=== PATIENT | female | born 1935 | race Caucasian/White ===

== ENCOUNTER → 2016-08-22 | Outpatient (CLI) | payer OTHER, MEDICARE ==
[2016-08-22 17:25] LABS: BUN/CREATININE RATIO 31.66 (6-20); CALCIUM 10.1 mg/dL (8.7-10.7); CREATININE 1.2 mg/dL (0.50-1.20); POTASSIUM 4.6 meq/L (3.8-5.2)
== END ==
LOC: MOB LAB 14:47
PROVIDERS: ATTEND Internal Medicine
DX: M81.0 Age-related osteoporosis without current pathological fracture (principal); F17.210 Nicotine dependence, cigarettes, uncomplicated
CPT/HCPCS: 36415; 80048

== ENCOUNTER → 2016-09-06 | Outpatient (CLI) | payer OTHER, MEDICARE | LOC: MMPC 11:11 | PROVIDERS: ATTEND Internal Medicine | DX: M81.0 Age-related osteoporosis without current pathological fracture (principal) | CPT/HCPCS: G0463; J0897 ==

== ENCOUNTER 2017-09-11 14:41 | Inpatient (IN) ==
--- NOTE | 2017-09-11 14:50 | PDOC ---
Upper Respiratory HPI - General Chief Complaint: Cough / URI Stated Complaint: COUGH Date Seen by Provider: 09/11/17 Time Seen by Provider: 14:50 Source: POSITIVE: Patient Nurse's Notes Reviewed & Considered: Yes - History of Present Illness Initial Comments: Patient is a 82 y/o female who presents to the ER with cough and SOB. She has been coughing for one week. Occasionally has been productive. Denies fevers or chills. Has a history of peripheral vascular disease and is planning on undergoing stenting. Cough has been worse over the last few days. She does feel shortness of breath. There is only chest discomfort when she coughs. Denies any pain or swelling in the lower extremities. Patient denies any nausea or vomiting. patient denies abdominal pain. - Patient Home Medications Home Medications: Home Medications Aspirin [Aspir 81] 1 tab ORAL QD #0 tab 07/30/12 Calcium Carbonate/Vitamin D3 [Calcium 500 + Vit D 200 Caplet] 1 ea PO BID Denosumab [Prolia] 1 ml SUBCUT every 6 months #0 ml 07/25/15 bupropion HCl XL 300 mg 24 hr tablet, extended release 300 mg PO QDAY #90 tab linaclotide 145 mcg capsule 145 mcg PO QDAY #90 cap 08/21/17 metoprolol tartrate 25 mg tablet 25 mg PO BID #180 tab 08/21/17 oxybutynin chloride ER 5 mg tablet,extended release 24 hr 5 mg PO QDAY #90 tab 08/21/17 pantoprazole 40 mg tablet,delayed release 40 mg PO QDAY #90 tab 08/21/17 rosuvastatin 40 mg tablet 40 mg PO QHS #90 tab 08/21/17 spironolactone 25 mg tablet 25 mg PO QDAY #90 tab 08/21/17 Ascorbic Acid [C-1000] 1,000 mg PO DAILY 09/11/17 - Patient Allergies Allergies/Adverse Reactions: Allergies 3 Allergy/AdvReac Type Severity Reaction Status Date / Time No Known Allergies Allergy Verified 09/11/17 17:40 Past Medical History - heen HEENT History: Denies History Cardiovascular History: CHF, Previous RI, PVD, Hyperlipidemia Additional Cardiovasular History: CARDIOMYOPATHY/ CAROTID ATHEROSCLEROSIS/ Respiratory History: Denies History, Snoring Gastrointestinal History: GERD, GI Bleed Genitourinary History: Denies History Endocrine History: Denies History Musculoskeletal History: Arthritis, Osteoporosis Prosthesis or Implant: Yes (STENTS X5 CORONARY) Neurological History: TIA Blood Disorders: Anemia Psychiatric History: Depression History of Sexually Transmitted Diseases: No Cancer History: Breast History of MDRO: No History of Other Communicable Diseases: No Alcohol Use: Occasionally In the Past 12 Months, Have Used or Abuse Any Substance: None Previous Surgical History: Yes Type / Date of Surgery: COLONOSCOPY/ CORONARY STENT X5/ EGD/ HYST/ RIGHT MASTECTOMY/HEMORROID SURGERY Anesthesia Reactions: No Malignant Hyperthermia: No Past Medical History Reviewed: Reviewed - No Changes ROS - Limitations ROS Limitations: No Limitations Constitution: REPORTS: Denies Symptoms Cardiovascular: REPORTS: Chest Pain Respiratory: REPORTS: Cough Productive Neurological: REPORTS: Denies Neuro Symptoms Gastrointestinal: REPORTS: Denies GI Symptoms Endocrine: REPORTS: Denies Symptoms Musculoskeletal: REPORTS: Denies MS Symptoms Genitourinary: REPORTS: Denies Symptoms Eyes: REPORTS: Denies Symptoms ENT: REPORTS: Denies Symptoms Skin: REPORTS: Denies Skin Symptoms Lympathic: REPORTS: Denies Lympathic Symptoms Psychiatric: POSITIVE: Denies Psych Symptoms Upper Respiratory/Fever Exam - General Appearance General Appearance: REPORTS: Alert, Cooperative, No Acute Distress - HEENT HEENT: POSITIVE: Head Inspection Nml, Nose Inspection Nml, Oral/Dental Inspect. Nml - Neck Neck: REPORTS: Normal Inspection, Supple - Respiratory Respiratory: REPORTS: No Respiratory Distress, Other (diminished bilaterally. R> L.) - Abdomen Abdomen: Soft: (All Quadrants) Additional Abdominal Details: Mild distension of the abdomen. No rebound or guarding. - Cardiovascular Cardiovascular: REPORTS: Regular Rate and Rhythm, No Murmur, No Gallop - Skin Skin: REPORTS: Intact - Extremities Additional Extremities Details: trace edema in the LE bilaterally. - Neurological / Psychological Neurological: POSITIVE: Affect Apporpriate, Oriented X3 Upper Resp/Fever Progress - Results Reviewed by me Xrays/CTs/US Reviewed by me: Yes Lab Results Reviewed by Me: Yes CBC and BMP: 09/11/17 15:19 18 15:19 EKG Interpreted/Reviewed By Me:: Yes (sinus rhythm. No acute ST changes.) - Patient's Progress MDM / ED Course: Mrs. Mc is an 82-year-old female who presents to the emergency department with coughing and shortness of breath. Her vital signs are notable for hypoxia and examination demonstrates diminished lung sounds worse in the left compared to the right. Differential diagnosis includes but is not limited to pneumonia, pneumothorax, congestive heart failure. Patient's laboratory studies demonstrate no elevation in her white blood cell count to suggest infection and chest x-ray demonstrates cardiomegaly with vascular congestion and likely left pleural effusion. He shouldn't BNP is also elevated from her priors it was approximately 2 weeks ago. EKG and troponins are negative making acute ACS less likely. And there is no evidence of georgina pneumonia and pneumothorax on her chest x-ray. Chemistry panel demonstrates increase in BUN/creatinine from baseline as well. With x-ray findings an elevation in BNP a suspected CHF may be the etiology of her hypoxia at this time. I did attempt a trial of albuterol without improvement in her oxygenation or her breath sounds. Given patient's hypoxia she'll be admitted for further treatment she was treated with 40 mg of Lasix here and admitted to the hospital. Patient Care Time - Estimated PCT Patient Care Time (In Minutes): 45 Vital Signs - Recent Vital Signs Vital Signs: Vital Signs (Last 8 hours) Temp Pulse Pulse Resp BP Pulse Ox 09/11/17 16:21 75 09/11/17 15:18 76 18 92 09/11/17 15:17 79 18 92 09/11/17 14:41 97.8 F 69 24 113/59 71 - VS Reviewed Vital Signs Reviewed: Yes Discharge Clinical Impression: Acute exacerbation of CHF (congestive heart failure) Qualifiers: Congestive heart failure type: unspecified congestive heart failure type Qualified Code(s): I50.9 - Heart failure, unspecified Discharge Disposition: Admit to Inpatient Condition: Good Date Decision to Admit to Inpatient: 09/11/17 Time Decision to Admit to Inpatient: 16:56
[2017-09-11] MEDS ORDERED: IPRATROPIUM/ALBUTEROL SULFATE 3 ML NEB NEB ONE ×2 (14:51)
[2017-09-11] MEDS: NORMAL SALINE 10 ML SYRINGE FLUSH IVP PRN ×2 (15:15→17:24)
[2017-09-11 15:16] LABS: VENOUS PH 7.39 (7.32-7.42)
[2017-09-11 15:21] LABS: BASOPHILS # (AUTO) 0.02 10*3/UL; BASOPHILS % (AUTO) 0.2 % (0-1); EOSINOPHILS # (AUTO) 0.41 10*3/UL; Hematocrit [HCT] 41.1 % (37.0-47.0); Hemoglobin [HGB] 13.4 g/dL (12.0-16.0); LYMPHOCYTES # (AUTO) 0.82 10*3/uL; MEAN CORPUSCULAR HEMOGLOBIN 29.8 PG (27-31); MEAN CORPUSCULAR HGB CONC 32.6 g/dL (33-37); MEAN CORPUSCULAR VOLUME 91.5 FL (81-99); MEAN PLATELET VOLUME 10.8 FL (7.4-12.2); MONOCYTES % (AUTO) 7.4 % (5-15); NEUTROPHILS # (AUTO) 6.22 10*3/UL; NEUTROPHILS % (AUTO) 76.7 % (50-80); RED BLOOD COUNT 4.49 10^6/uL (4.20-5.40)
[2017-09-11 15:22] LABS: PLATELET MORPHOLOGY COMMENT NORMAL MORPHOLOGY (NORM); RBC MORPHOLOGY COMMENT NORMAL MORPHOLOGY (NORM); WBC MORPHOLOGY COMMENT NORMAL MORPHOLOGY (NORM)
[2017-09-11 15:33] LABS: BLOOD UREA NITROGEN 36 mg/dL (7-22)
--- NOTE | 2017-09-11 15:49 | DI ---
AP CHEST X-RAY, 09/11/2017 2:51 PM : Clinical History: Cough. Hypoxia. Previous Exam: 08/21/2017. The patient took a somewhat shallow inspiratory effort compared to the previous exam. There is no acu te soft tissue or bony abnormality. The patient is status post right mastectomy. There is cardiomegal y. CHF is difficult to quantify because of the shallow degree of inspiration as compared to the previ ous exam but CHF is still suspected. There is a coronary artery stent in the LAD. There is atelectasi s at the right base. Mediastinal structures are normal. There are no pulmonary nodules. Readin. Cardiomegaly with probable CHF. 2. Coronary artery disease. Status post right mastectomy.
--- NOTE | 2017-09-11 16:20 | EKG ---
[address] [place] [address] [place] [address] Measurements Intervals Queen Rate: 75 P: 65 DC: 199 QRS: 15 QRSD: 106 T: 111 QT: 370 QTc: 399 Interpretive Statements SINUS RHYTHM LEFT ATRIAL ENLARGEMENT INFERIOR MYOCARDIAL INFARCTION OF INDETERMINATE AGE WITH POSTERIOR EXTENSION MODERATE T-WAVE ABNORMALITY, CONSIDER LATERAL ISCHEMIA No previous ECG available for comparison Electronically Signed On 09-12-17 10:07:24 [facility] by Simon Jarvis [email or web address]
[2017-09-11] MEDS ORDERED: FUROSEMIDE 10 MG/1 ML - 4 ML IVP ONE (16:54)
[2017-09-11] MEDS ORDERED: LIDOCAINE W/ SODIUM BICARB 0.5 ML SYR SUBD PRN (18:43)
--- NOTE | 2017-09-11 18:56 | PDOC ---
HPI - History of Present Illness Date of Service: 09/11/17 Time of Service: 19:00 Chief Complaint: Cough of few days duration History of Present Illness: This is a 82 years old female with medical history significant for history of coronary artery disease with previous silent TX and multiple stents before, hypertension, history of breast cancer and uterine cancer who presented to the hospital with history of cough that's been going on for few days. She is not sure about shortness of breath but on repeated questioning she said yes she has some shortness of breath, she said her mobility is limited mainly by her pain in her legs when she walks she will walk half a block and stop because of pain in her legs. She denied orthopnea or PND. Denied chest pain. She did say that she is saw a vascular surgeon yesterday and they sent her to the overhead foreman for clearance as she needed surgery was discovered that she had hypoxia yesterday and they ordered oxygen but was not delivered yet. Because her oxygen remained low her daughter brought her to the ER. In the ER she was found to be hypoxic and she was put on oxygen her x-ray suggested CHF was given Lasix and was admitted. Past Medical History Medical History: 1. Coronary artery disease with previous silent TX according to her, had multiple stents. 2. GERD. 3. History of breast cancer status post right mastectomy. 4. History of uterine cancer. 5. Peripheral vascular disease. 6. Osteoporosis. 7. Depression Surgical History: 1. History of hysterectomy. 2. History of mastectomy Family History: Reviewed an Not Pertinent Past Social History: She smokes about 10-18 cigarettes a day, drinks nearly every day. No drugs. Lives in [place]. Tobacco Use: Current Every Day Smoker In the Past 12 Months, Have Used or Abuse Any of the Following Substance: None Alcohol Use: Other (She drinks nearly every day) Medication / Allergies Home Medications: Home Medications 3 Medication Instructions Recorded Confirmed Type Aspirin [Aspir 81] 1 tab ORAL QD #0 tab 07/30/12 09/11/17 History Calcium Carbonate/Vitamin D3 1 ea PO BID 07/30/12 09/11/17 History [Calcium 500 + Vit D 200 Caplet] Denosumab [Prolia] 1 ml SUBCUT every 6 months #0 ml 07/25/15 09/11/17 History bupropion HCl XL 300 mg 24 hr 300 mg PO QDAY #90 tab 08/21/17 09/11/17 Rx tablet, extended release linaclotide 145 mcg capsule 145 mcg PO QDAY #90 cap 08/21/17 09/11/17 Rx metoprolol tartrate 25 mg tablet 25 mg PO BID #180 tab 08/21/17 09/11/17 Rx oxybutynin chloride ER 5 mg 5 mg PO QDAY #90 tab 08/21/17 09/11/17 Rx tablet,extended release 24 hr pantoprazole 40 mg tablet,delayed 40 mg PO QDAY #90 tab 08/21/17 09/11/17 Rx release rosuvastatin 40 mg tablet 40 mg PO QHS #90 tab 08/21/17 09/11/17 Rx spironolactone 25 mg tablet 25 mg PO QDAY #90 tab 08/21/17 09/11/17 Rx Ascorbic Acid [C-1000] 1,000 mg PO DAILY 09/11/17 09/11/17 History Allergies/Adverse Reactions: Allergies 3 Allergy/AdvReac Type Severity Reaction Status Date / Time No Known Allergies Allergy Verified 09/12/17 06:24 Review of Systems - Review of Systems All Systems: Reviewed & No Additional Complaints Except as Stated Exam - Vitals Vital Signs: Vital Signs Temperature 98.3 F Temperature Source Oral Pulse Rate [Pulse Oximeter] 70 Pulse Rate 69 Respiratory Rate 22 Blood Pressure [Left Arm] 99/36 Blood Pressure 95/36 Pulse Ox 90 Oxygen Flow Rate 4 Oxygen Delivery Method Nasal Cannula Height 5 ft 3 in Weight 141 lb 8 oz - General General Appearance: No Acute Distress, Cooperative, Thin - Head Head Exam: Normal Inspection, Atraumatic - Eye Eye Exam: POSITIVE: Normal Appearance - ENT ENT Exam: POSITIVE: Normal Exam - Neck Neck Exam: Normal Inspection - Respiratory Additional Respiratory Exam Details: Decreased air entry, harsh breath sounds but I don't hear a lot of crackles at the bases. - Cardiovascular Cardiovascular Exam: POSITIVE: RRR - GI/Abdominal GI/Abdominal Exam: POSITIVE: Normal Bowel Sounds, Non Tender, Non Distended, Soft, No Organomegaly - Rectal Rectal Exam: POSITIVE: Deferred - External Exam: POSITIVE: Deferred Exam: POSITIVE: Deferred - Extremities Extremities Exam: POSITIVE: Normal Inspection - Back Back Exam: POSITIVE: Normal Inspection - Neurological Neurological Exam: POSITIVE: Alert, Oriented x 3, CN II-XII Intact, Speech Intact / Clear, Moves All Extremities Equally - Psychiatric Psychiatric Exam: POSITIVE: Normal Affect - Integumentary Integumentary Exam: POSITIVE: Normal Color Results - Labs CBC and BMP: 09/11/17 15:19 09/12/17 04:46 - EKG Data -: EKG Interpreted by Me Rate: Normal EKG Shows Normal: Sinus Rhythm - EKG Data EKG Interpretation: Other (EKG showed sinus rhythm with old inferior and T inversion in the lateral leads) - Imaging Status: Report Reviewed by Me (chest x ray showed cardiomegaly and CHF) Assessment and Plan - Patient Problems (1) Shortness of breath Current Visit: Yes Status: Acute Comment: I think probably a combination of CHF and COPD. She did receive Lasix will continue with Lasix. Will order an echocardiogram. I also will order a CT of her chest also. Will put on some breathing treatment. Code(s): R06.02 - Shortness of breath (2) Gastroesophageal reflux disease Current Visit: No Status: Chronic Comment: Same med (3) History of coronary artery disease Current Visit: Yes Status: Acute Comment: Continue aspirin and beta adelso. Code(s): Z86.79 - Personal history of other diseases of the circulatory system
[2017-09-11] MEDS: FLUTICASONE/SALMETEROL 250/50 UD INHALER INH SCH (19:30)
[2017-09-11] MEDS: Metoprolol TARTRATE Tab 25 MG TAB PO SCH (20:19)
[2017-09-11] MEDS: Rosuvastatin Tab 20 MG TAB PO SCH (20:19)
[2017-09-12 05:32] LABS: BLOOD UREA NITROGEN 38 mg/dL (7-22); BUN/CREATININE RATIO 23.75 (6-20)
[2017-09-12] MEDS: FLUTICASONE/SALMETEROL 250/50 UD INHALER INH SCH ×2 (06:17→18:59)
[2017-09-12] MEDS: TIOTROPIUM BROMIDE 18 MCG CAPSULE INH SCH (06:20)
[2017-09-12] MEDS ORDERED: FUROSEMIDE 10 MG/1 ML - 2 ML VIAL IVP SCH (07:00)
[2017-09-12] MEDS: PANTOPRAZOLE 40 MG TABLET PO SCH (07:12)
[2017-09-12] MEDS: FUROSEMIDE 10 MG/1 ML - 2 ML VIAL IVP SCH (07:13)
[2017-09-12] MEDS: NORMAL SALINE 10 ML SYRINGE FLUSH IVP PRN ×3 (07:13→13:14)
[2017-09-12] MEDS: buPROPion XL Tab 150 MG TAB PO SCH (09:12)
[2017-09-12] MEDS: Spironolactone Tab 25 MG TAB PO SCH (09:12)
[2017-09-12] MEDS: ASPIRIN EC 81 MG TABLET PO SCH (09:12)
[2017-09-12] MEDS: Metoprolol TARTRATE Tab 25 MG TAB PO SCH ×2 (09:13→21:22)
[2017-09-12] MEDS: Oxybutynin ER Tab 5 MG TAB PO SCH (09:13)
--- NOTE | 2017-09-12 10:36 | DI ---
CT CHEST SCAN WITHOUT IV CONTRAST, 09/12/2017 8:00 AM : Clinical History: Cough. Shortness of breath. Previous Exam: None at this facility. Comparison is made with chest x-ray exams from 08/21/2017, and . Scans are performed from the base of the neck to the lower lung bases without IV contrast. Sagittal a nd coronal images using non MIPS and MIPS technique are generated. The patient is status post right mastectomy and right axillary node dissection. The base of the neck and thoracic inlet are normal. There are no abnormal axillary, supraclavicular, mediastinal, or hilar nodes. There is a calcified myocardial infarction involving the laterobasal in the distribution of t he lateral circumflex territory. There are densities in the coronary arteries most likely representin g stents in the left circumflex artery, the LAD, and the right coronary artery. There is an infiltrat e consistent with pneumonia involving the posterior segment of the right upper lobe. In retrospect, t his density was present on the chest x-ray from 09/11/2017. There is bronchiectasis involving both low er lobes. Juan B lines are present indicating chronic interstitial pulmonary fibrosis. Small bullae are scattered throughout both lungs indicating bullous emphysema. There is a 4 mm noncalcified nodul e toward the lateral aspect of the anterior segment of the right upper lobe. A 5 mm noncalcified nodu le along with a 3 mm noncalcified nodule is present just above the left costophrenic angle. A followu p CT scan of the chest without IV contrast is recommended in 12 months to monitor these lesions. The adrenal glands, and the visualized portions of the liver, pancreas, and spleen are normal. No blastic or lytic bony lesions are identified. READIN. Right upper lobe pneumonia involving primarily the posterior segment. 2. 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 There is bronchiectasis involving both lower lobes. 3. Coronary artery disease with evidence of a calcified infarct in the lateral basal segment corresp onding to the lateral circumflex artery distribution. Multiple stents are visualized in the LAD, righ t coronary artery, and left circumflex artery. 4. There are 3 noncalcified nodules measuring less than 6 mm in diameter. One is located in the ante rior segment of the right upper lobe and the other 2 lesions are located in the left costophrenic ang le. A followup noncontrast CT scan of the chest is recommended in 12 months.
--- NOTE | 2017-09-12 11:22 | PDOC(PROG) ---
Date and Time of Service: 09/12/2017 11:20 AM Interval History: Subjective Continue to have the cough, not much phlegm is coming up. The cough maybe a little bit better. Breathing is okay. Objective : Data - Labs CBC and BMP: 09/11/17 15:19 09/12/17 04:46 Objective : Exam - General General Appearance: No Acute Distress, Cooperative - Head Head Exam: Normal Inspection - Eye Eye Exam: Normal Appearance - ENT ENT Exam: Normal Exam - Neck Neck Exam: Normal Inspection - Respiratory Additional Respiratory Exam Details: Decreased air entry. Few crackles at the bases - Cardiovascular Cardiovascular Exam: RRR - GI/Abdominal GI/Abdominal Exam: Normal Bowel Sounds, Non Tender, Non Distended, Soft, No Organomegaly - Rectal Rectal Exam: Deferred - External Exam: Deferred Exam: Deferred - Extremities Extremities Exam: Normal Inspection - Back Back Exam: Normal Inspection - Neurological Neurological Exam: Alert, Oriented x 3, CN II-XII Intact, No Facial Droop, Speech Intact / Clear, Moves All Extremities Equally - Psychiatric Psychiatric Exam: Normal Affect Assessment and Plan - Patient Problems (1) Pneumonia Current Visit: Yes Status: Acute Comment: The x-ray from yesterday did not report pneumonia however we did a CT today and showed pneumonia in the right upper lobe, blood culture was already taken so we'll start her on antibiotics. So the shortness of breath and the cough may be due to pneumonia in addition to COPD and CHF. Code(s): J18.9 - Pneumonia, unspecified organism (2) Shortness of breath Current Visit: Yes Status: Acute Comment: Probably multifactorial secondary to pneumonia, COPD and CHF. I think we'll continue with the Lasix. Continue bronchodilator and oxygen. She'll have an echo today. Code(s): R06.02 - Shortness of breath (3) Gastroesophageal reflux disease Current Visit: No Status: Chronic Comment: Same med (4) History of coronary artery disease Current Visit: Yes Status: Acute Comment: Continue aspirin and beta adelso. Code(s): Z86.79 - Personal history of other diseases of the circulatory system (5) Chronic renal failure Current Visit: Yes Status: Acute Comment: Her Creatinine before was between 1.3-1.6. But still at baseline will repeat tomorrow. Code(s): N18.9 - Chronic kidney disease, unspecified (6) DVT prophylaxis Current Visit: Yes Status: Acute Comment: Will put her on Lovenox
[2017-09-12] MEDS: cefTRIAXone Inj 1 GM in Sodium Chloride 0.9% 100 ML IV SCH (11:41)
[2017-09-12] MEDS: GUAIFENESIN/DM 5 ML UD CUP PO PRN ×2 (12:48→17:25)
[2017-09-12] MEDS: ALBUTEROL SULFATE 8.5 GM HFA INHALER INH SCH ×2 (14:00→19:00)
[2017-09-12] MEDS: Rosuvastatin Tab 20 MG TAB PO SCH (21:22)
[2017-09-13] MEDS: ALBUTEROL SULFATE 8.5 GM HFA INHALER INH SCH ×4 (01:10→20:10)
[2017-09-13 05:29] LABS: BLOOD UREA NITROGEN 34 mg/dL (7-22); BUN/CREATININE RATIO 26.15 (6-20)
[2017-09-13] MEDS: FLUTICASONE/SALMETEROL 250/50 UD INHALER INH SCH ×2 (06:33→20:11)
[2017-09-13] MEDS: TIOTROPIUM BROMIDE 18 MCG CAPSULE INH SCH (06:35)
[2017-09-13] MEDS: PANTOPRAZOLE 40 MG TABLET PO SCH (07:07)
[2017-09-13] MEDS: FUROSEMIDE 10 MG/1 ML - 2 ML VIAL IVP SCH (07:07)
[2017-09-13] MEDS: NORMAL SALINE 10 ML SYRINGE FLUSH IVP PRN (07:08)
[2017-09-13] MEDS: Spironolactone Tab 25 MG TAB PO SCH (08:26)
[2017-09-13] MEDS: buPROPion XL Tab 150 MG TAB PO SCH (08:26)
[2017-09-13] MEDS: Metoprolol TARTRATE Tab 25 MG TAB PO SCH ×2 (08:26→20:17)
[2017-09-13] MEDS: Oxybutynin ER Tab 5 MG TAB PO SCH (08:26)
[2017-09-13] MEDS: ENOXAPARIN SODIUM 30 MG/0.3 ML SYRINGE SUBCUT SCH (08:26)
[2017-09-13] MEDS: ASPIRIN EC 81 MG TABLET PO SCH (08:27)
--- NOTE | 2017-09-13 08:45 | PDOC(PROG) ---
Date and Time of Service: 09/13/2017 8:41 AM Interval History: Subjective Patient continued to have the cough. She is denying shortness of breath. Denying chest pain. She said that she feels she made improvement compared to when she came in. No swelling in her legs. Objective : Data - Labs CBC and BMP: 09/11/17 15:19 09/13/17 04:23 Objective : Exam - General General Appearance: No Acute Distress, Cooperative, Thin - Head Head Exam: Normal Inspection, Atraumatic - Eye Eye Exam: Normal Appearance - ENT ENT Exam: Normal Exam - Neck Neck Exam: Normal Inspection - Respiratory Additional Respiratory Exam Details: Decreased air entry otherwise clear - GI/Abdominal GI/Abdominal Exam: Normal Bowel Sounds, Non Tender, Non Distended, Soft, No Organomegaly - Rectal Rectal Exam: Deferred - External Exam: Deferred - Extremities Extremities Exam: Normal Inspection - Back Back Exam: Normal Inspection - Neurological Neurological Exam: Alert, Oriented x 3, CN II-XII Intact, No Facial Droop, Speech Intact / Clear, Moves All Extremities Equally - Psychiatric Psychiatric Exam: Normal Affect - Integumentary Integumentary Exam: Normal Color Assessment and Plan - Patient Problems (1) Pneumonia Current Visit: Yes Status: Acute Comment: Continue current antibiotics. Code(s): J18.9 - Pneumonia, unspecified organism (2) Shortness of breath Current Visit: Yes Status: Acute Comment: Multifactorial, part of it is secondary to pneumonia part of it secondary to COPD and CHF. Continue bronchodilator, continue Lasix. Code(s): R06.02 - Shortness of breath (3) Gastroesophageal reflux disease Current Visit: No Status: Chronic Comment: Same med (4) History of coronary artery disease Current Visit: Yes Status: Acute Comment: Continue metoprolol and aspirin. Code(s): Z86.79 - Personal history of other diseases of the circulatory system (5) Chronic renal failure Current Visit: Yes Status: Acute Comment: Creatinine is actually better today than yesterday. Code(s): N18.9 - Chronic kidney disease, unspecified (6) DVT prophylaxis Current Visit: Yes Status: Acute Comment: She is on Lovenox (7) CHF (congestive heart failure) Current Visit: Yes Status: Acute Comment: I don't have the official echo yet, BNP seem to be improved. Continue Lasix. According to the bioprocessing manufacturing technician ejection fraction is between 45-50%. Will wait for the official report. Consider adding LAUREN inhibitor to her medications. Code(s): I50.9 - Heart failure, unspecified
[2017-09-13] MEDS: cefTRIAXone Inj 1 GM in Sodium Chloride 0.9% 100 ML IV SCH (11:35)
[2017-09-13] MEDS: GUAIFENESIN/DM 5 ML UD CUP PO PRN ×2 (15:48→20:17)
[2017-09-13] MEDS: Rosuvastatin Tab 20 MG TAB PO SCH (20:17)
[2017-09-14] MEDS: ALBUTEROL SULFATE 8.5 GM HFA INHALER INH SCH ×5 (01:00→19:08)
[2017-09-14 06:35] LABS: BLOOD UREA NITROGEN 36 mg/dL (7-22)
[2017-09-14] MEDS: FLUTICASONE/SALMETEROL 250/50 UD INHALER INH SCH ×2 (06:51→19:06)
[2017-09-14] MEDS: TIOTROPIUM BROMIDE 18 MCG CAPSULE INH SCH (06:52)
[2017-09-14] MEDS: PANTOPRAZOLE 40 MG TABLET PO SCH (07:02)
[2017-09-14] MEDS: FUROSEMIDE 10 MG/1 ML - 2 ML VIAL IVP SCH (07:02)
[2017-09-14] MEDS: NORMAL SALINE 10 ML SYRINGE FLUSH IVP PRN ×2 (07:02→11:28)
[2017-09-14] MEDS: ENOXAPARIN SODIUM 30 MG/0.3 ML SYRINGE SUBCUT SCH (08:41)
[2017-09-14] MEDS: ASPIRIN EC 81 MG TABLET PO SCH (08:42)
[2017-09-14] MEDS: Spironolactone Tab 25 MG TAB PO SCH (08:42)
[2017-09-14] MEDS: Metoprolol TARTRATE Tab 25 MG TAB PO SCH ×2 (08:42→20:13)
[2017-09-14] MEDS: Oxybutynin ER Tab 5 MG TAB PO SCH (08:42)
[2017-09-14] MEDS: buPROPion XL Tab 150 MG TAB PO SCH (08:42)
[2017-09-14] MEDS ORDERED: LINACLOTIDE 145 MCG PO SCH (09:00)
--- NOTE | 2017-09-14 10:05 | PDOC(PROG) ---
Interval History: Patient feels much better compared to when she came in short of breath still on oxygen today we will walk her to see if she requires any additional help to denies chest pain Objective : Data - Labs CBC and BMP: 09/11/17 15:19 09/14/17 04:23 Objective : Exam - General General Appearance: Cooperative - Respiratory Respiratory Exam: Clear to Auscultation - Bilaterally, Breathing Non Labored, Normal To Percussion, Normal to Percussion and Palpation - Cardiovascular Cardiovascular Exam: RRR, No Murmur, No Clicks, No Gallops, No Rubs, PMI Non- Displaced - GI/Abdominal GI/Abdominal Exam: Normal Bowel Sounds, Non Tender, Non Distended, Soft, No Masses, No Hepatomegaly, No Splenomegaly, No Organomegaly - Extremities Extremities Exam: No Clubbing Present, No Edema Present, No Cyanosis Present Assessment and Plan - Patient Problems (1) Pneumonia Current Visit: Yes Status: Acute Comment: continue abx 7 days total increase ceftriaxone to 2 grams check cbc Code(s): J18.9 - Pneumonia, unspecified organism (2) CHF (congestive heart failure) Current Visit: Yes Status: Acute Comment: bnp improved . cont blaze has apt with cards [place] week. monitor kidney function Code(s): I50.9 - Heart failure, unspecified (3) History of coronary artery disease Current Visit: Yes Status: Acute Comment: many calcifications on ct hx of stents trops negative Code(s): Z86.79 - Personal history of other diseases of the circulatory system (4) Chronic renal failure Current Visit: Yes Status: Acute Comment: most likely from poor perfusion . improved today Code(s): N18.9 - Chronic kidney disease, unspecified (5) DVT prophylaxis Current Visit: Yes Status: Acute (6) Gastroesophageal reflux disease Current Visit: No Status: Chronic Comment: cont ppi i intrcted pt to discussed with pcp the need for this medication. she prefers to take it at present (7) Weakness Current Visit: Yes Status: Acute Comment: Consult PTOT to make sure she is good to go Code(s): R53.1 - Weakness
[2017-09-14] MEDS: cefTRIAXone Inj 2 GM in Sodium Chloride 0.9% 100 ML IV SCH (10:38)
[2017-09-14] MEDS: Rosuvastatin Tab 20 MG TAB PO SCH (20:13)
[2017-09-14] MEDS: GUAIFENESIN/DM 5 ML UD CUP PO PRN (20:14)
[2017-09-14] MEDS: LINACLOTIDE 145 MCG PO SCH (20:14)
[2017-09-15] MEDS: ALBUTEROL SULFATE 8.5 GM HFA INHALER INH SCH ×4 (00:12→18:50)
[2017-09-15] MEDS: GUAIFENESIN/DM 5 ML UD CUP PO PRN ×2 (05:47→20:28)
[2017-09-15] MEDS: TIOTROPIUM BROMIDE 18 MCG CAPSULE INH SCH (06:43)
[2017-09-15] MEDS: FLUTICASONE/SALMETEROL 250/50 UD INHALER INH SCH ×2 (06:43→18:50)
[2017-09-15] MEDS: NORMAL SALINE 10 ML SYRINGE FLUSH IVP PRN (06:48)
[2017-09-15] MEDS: FUROSEMIDE 10 MG/1 ML - 2 ML VIAL IVP SCH (06:48)
[2017-09-15] MEDS: PANTOPRAZOLE 40 MG TABLET PO SCH (06:48)
[2017-09-15] MEDS: cefTRIAXone Inj 2 GM in Sodium Chloride 0.9% 100 ML IV SCH (09:14)
[2017-09-15] MEDS: ASPIRIN EC 81 MG TABLET PO SCH (09:14)
[2017-09-15] MEDS: ENOXAPARIN SODIUM 30 MG/0.3 ML SYRINGE SUBCUT SCH (09:14)
[2017-09-15] MEDS: buPROPion XL Tab 150 MG TAB PO SCH (09:14)
[2017-09-15] MEDS: Oxybutynin ER Tab 5 MG TAB PO SCH (09:15)
[2017-09-15] MEDS: Spironolactone Tab 25 MG TAB PO SCH (09:15)
[2017-09-15] MEDS: Metoprolol TARTRATE Tab 25 MG TAB PO SCH ×2 (09:15→20:28)
--- NOTE | 2017-09-15 11:29 | PDOC(PROG) ---
Interval History: Patient feels great no shortness of breath no chest pain Objective : Data - Labs CBC and BMP: 09/11/17 15:19 09/14/17 04:23 Objective : Exam - General General Appearance: Cooperative - Head Head Exam: Normal Inspection, Normocephalic, Atraumatic - Respiratory Respiratory Exam: Clear to Auscultation - Bilaterally, Breathing Non Labored, Normal To Percussion, Normal to Percussion and Palpation - Cardiovascular Cardiovascular Exam: RRR, No Murmur, No Clicks, No Gallops, No Rubs, PMI Non- Displaced - GI/Abdominal GI/Abdominal Exam: Normal Bowel Sounds, Non Tender, Non Distended, Soft, No Masses, No Hepatomegaly, No Splenomegaly, No Organomegaly - Extremities Extremities Exam: No Clubbing Present, No Edema Present, No Cyanosis Present Assessment and Plan - Patient Problems (1) Pneumonia Current Visit: Yes Status: Acute Comment: Continue antibiotics today we'll be 5 days most likely patient will be discharged in the morning she will receive 1 more dose of ceftriaxone tomorrow morning Code(s): J18.9 - Pneumonia, unspecified organism (2) CHF (congestive heart failure) Current Visit: Yes Status: Acute Comment: CHF is resolved no edema patient has an appointment in [place] for stress test and an echo on Friday I talk to her deburr technician Dr. Prince which also wants her to keep her appointments I also talked to daughter Nacny which will be coming to get the patient tomorrow for discharge Code(s): I50.9 - Heart failure, unspecified (3) History of coronary artery disease Current Visit: Yes Status: Acute Comment: Has a appointment with her deburr technician on Friday Code(s): Z86.79 - Personal history of other diseases of the circulatory system (4) Chronic renal failure Current Visit: Yes Status: Acute Comment: This is much improved Code(s): N18.9 - Chronic kidney disease, unspecified (5) DVT prophylaxis Current Visit: Yes Status: Acute (6) Gastroesophageal reflux disease Current Visit: No Status: Chronic Comment: Stable (7) Weakness Current Visit: Yes Status: Acute Comment: Continue PTOT Code(s): R53.1 - Weakness
[2017-09-15] MEDS: FUROSEMIDE 20 MG TABLET PO SCH (13:12)
--- NOTE | 2017-09-15 14:14 | OTI REPORT ---
Thank you for the referral of Sharita Flowers. She was seen on 09/14/17 for an occupational therapy inpatient evaluation secondary to generalized weakness and pneumonia. SUBJECTIVE: The patient is an 82-year-old female who is being seen today secondary to having pneumonia, CHF, weakness, GERD, and CAD. The patient is also having pain in her legs when walking and shortness of breath. The patient reports that she lives alone in a mobile home in [place]. Prior to admission the patient was not on oxygen. Her house is set up with a bathtub; however, the patient reports she has very low toilets. The patient reports a lot of difficulty getting up from her toilet. The patient states she would like to get a shower chair; her son is looking at borrowing one from the [facility]. The patient usually does not use any ambulatory devices. Prior to admission the patient was independent with her laundry, cooking, cleaning, grocery shopping, and driving. She does not have any assistance at this point in time. Throughout the assessment, the patient did state that she does have trouble rolling out of bed sometimes and has decreased bed mobility. She also reports that she has a cardio doctor appointment this coming week. They are contemplating placing a stent in her heart. The patient states that she has no blood flow per say and this is causing some of the pain in her legs when she is walking. PAST MEDICAL HISTORY: Past medical history can be found in the patient's medical record. OBJECTIVE FINDINGS: Range of motion: Today the patient had within functional limits for active range of motion of bilateral upper extremities. Strength: Strength throughout her upper extremities was 4/5 for flexion/ abduction, biceps/triceps, forearm pronation/supination, and wrist flexion/ extension. Activities of daily living: The patient was able to demonstrate donning and doffing her socks while sitting edge of bed. Balance: We did some dynamic balance activities such as going to the sink and completing hygiene activities. The patient needed min assist for her balance; she tends to hold on to furniture when ambulating. Ambulation: The patient completed 300 feet of dynamic ambulation and she did hold onto furniture. Oxygen: After ambulation, the patient's oxygen levels were reassessed and she was down to 87%. She becomes very short of breath. We worked on pursed lipped breathing and some energy conservation techniques. ASSESSMENT: Problem List: Patient will require education on energy conservation Decreased strength Decreased activity tolerance Decreased ability to perform functional transfers Short-Term Goals: To be met by discharge from inpatient: Patient will increase upper extremity strength to 5/5. Patient will be able to state 3 energy conservation techniques and demonstrate doing those independently. Patient will be able to complete all shower and toilet transfers independently. Long-Term Goals: To be met following discharge from inpatient: Patient will be discharged to home, demonstrating independence and safety with all ADLs and functional transfers. TREATMENT PLAN: Patient will be seen B.I.D during the week and one time per day over the weekend as an inpatient to address the above goals and objectives. INITIAL TREATMENT: Treatment today consisted of the initial evaluation followed by the patient completing bed mobility, functional ambulation to the sink, and hygiene activities with contact guard to min assist for balance. The patient performed functional dynamic mobility with min assist. The patient completed upper and lower extremity active range of motion exercises while completing pursed lipped breathing while sitting in chair. Instructions were given to move upper and lower extremities throughout the day, especially this afternoon as it is Friday and there will not be a second therapy session. The patient was instructed to perform shoulder flexion, biceps curls, marching in place, and leg kickouts to improve her overall abilities with her pneumonia. The patient was also instructed to ask nursing to walk her around the nurse's station. SYLWIA
--- NOTE | 2017-09-15 14:24 | PTI REPORT ---
Thank you for the referral of Sharita Flowers. She was seen on 09/15/17 for an inpatient evaluation secondary to weakness. SUBJECTIVE: The patient is an 82-year-old female from [place] who has been admitted due to weakness and some pneumonia like symptoms. She states that she is scheduled for some stents in her legs in [place] here sometime this week if weather permits her to get to [place] for further evaluation. The patient states that she had been feeling a little shaky and her balance was poor the last couple of days. PAST MEDICAL HISTORY: Past medical history can be found in the patient's medical record. OBJECTIVE FINDINGS: General observations: The patient was alert and oriented x3 in her room. She was very cooperative. Bed mobility: The patient was able to come from supine to sit with stand by assistance. Transfers: The patient was able to come from sit to stand with stand by assistance. Balance: The patient scored a 42 on her Murdock score, which is actually pretty good. Ambulation: The patient ambulated to the therapy department with stand by assistance. ASSESSMENT: Weakness from recent illness of uppers and lowers. She was having some balance issues earlier; those seem to be resolving. Short-Term Goals: To be met by discharge from inpatient: Patient will be able to transfer from bed to stand independently. Patient will demonstrate balance of good or greater. Patient will demonstrate upper extremity strength of 5/5. Patient will be able to ambulate household distances with least restrictive assistive device. Long-Term Goals: To be met following discharge from inpatient: Patient will be seen by outpatient physical therapy. TREATMENT PLAN: Patient will be seen B.I.D during the week and one time per day over the weekend as an inpatient to address the above goals and objectives. INITIAL TREATMENT: Treatment today consisted of the initial evaluation. The patient ambulated to the therapy department with stand by assistance. She participated in light upper and lower extremity strengthening. She was complaining of some back pain that she has had in a chronic nature. We applied some heat and the patient was escorted back to her room to work with occupational therapy. SYLWIA
--- NOTE | 2017-09-15 16:10 | PT.PROG ---
Progress Note Progress Note: S. Patient stated that she is feeling good this afternoon and would like to go to the therapy gym. O. Patient ambulated 175 feet to the therapy gym where she performed supine exercises in the form of; straight leg raises, hip abduction/adduction, seated marches, long arc quads, hamstring curls all x 15 with red thera band, sit to stands x 10, box step ups with #2 box x 10. Patient used the nu-step x 5 minutes. Patient ambulated 175 feet back to her room where she was left with alarm and call light. A. Patient tolerated therapy well, she continues to struggle to keep her o2 sats in normal range. She requires frequent rest breaks to recover. She is able to ambulate with CGA, she would continue to benefit from skilled therapy to help increase strength and endurance. P. Continue POC.
[2017-09-15] MEDS: Rosuvastatin Tab 20 MG TAB PO SCH (20:28)
[2017-09-15] MEDS: LINACLOTIDE 145 MCG PO SCH (20:29)
[2017-09-16] MEDS: ALBUTEROL SULFATE 8.5 GM HFA INHALER INH SCH ×2 (00:55→06:55)
[2017-09-16] MEDS: GUAIFENESIN/DM 5 ML UD CUP PO PRN (00:56)
[2017-09-16 05:11] VITALS: RESP 20
[2017-09-16 06:55] LABS: Hematocrit [HCT] 37.4 % (37.0-47.0); Hemoglobin [HGB] 12.2 g/dL (12.0-16.0); MEAN CORPUSCULAR HEMOGLOBIN 29.9 PG (27-31); MEAN CORPUSCULAR HGB CONC 32.6 g/dL (33-37); MEAN CORPUSCULAR VOLUME 91.7 FL (81-99); MEAN PLATELET VOLUME 9.5 FL (7.4-12.2); RED BLOOD COUNT 4.08 10^6/uL (4.20-5.40)
[2017-09-16] MEDS: FLUTICASONE/SALMETEROL 250/50 UD INHALER INH SCH (06:55)
[2017-09-16] MEDS: TIOTROPIUM BROMIDE 18 MCG CAPSULE INH SCH (06:56)
[2017-09-16] MEDS: FUROSEMIDE 20 MG TABLET PO SCH ×2 (06:58→13:06)
[2017-09-16] MEDS: PANTOPRAZOLE 40 MG TABLET PO SCH (06:58)
[2017-09-16 07:14] LABS: BLOOD UREA NITROGEN 38 mg/dL (7-22); SERUM ALBUMIN 3.4 g/dL (3.5-4.8)
[2017-09-16 07:46] LABS: PLATELET MORPHOLOGY COMMENT NORMAL MORPHOLOGY (NORM); RBC MORPHOLOGY COMMENT NORMAL MORPHOLOGY (NORM); WBC MORPHOLOGY COMMENT SEE COMMENTS (NORM)
[2017-09-16 07:48] LABS: BAND NEUTROPHILS % 4 % (0-10); BASOPHILS % (MANUAL) 0 % (0-1); EOSINOPHILS % (MANUAL) 1 % (0-8); MONOCYTES % (MANUAL) 7 % (0-12); NEUTROPHILS % (MANUAL) 58 % (50-80)
[2017-09-16] MEDS: buPROPion XL Tab 150 MG TAB PO SCH (08:16)
[2017-09-16] MEDS: Spironolactone Tab 25 MG TAB PO SCH (08:16)
[2017-09-16] MEDS: Oxybutynin ER Tab 5 MG TAB PO SCH (08:17)
[2017-09-16] MEDS: ENOXAPARIN SODIUM 30 MG/0.3 ML SYRINGE SUBCUT SCH (08:17)
[2017-09-16] MEDS: ASPIRIN EC 81 MG TABLET PO SCH (08:17)
[2017-09-16] MEDS: Metoprolol TARTRATE Tab 25 MG TAB PO SCH (08:17)
[2017-09-16] MEDS: NORMAL SALINE 10 ML SYRINGE FLUSH IVP PRN (09:17)
[2017-09-16] MEDS: cefTRIAXone Inj 2 GM in Sodium Chloride 0.9% 100 ML IV SCH (09:17)
[2017-09-16 09:44] VITALS: O2SAT 92
--- NOTE | 2017-09-16 10:19 | OT AM DAY ---
Diagnosis : Weakness AM - Occupational Therapy S: The patient reports that she does have a lower toilet and she does want a high rise toilet seat. O: Today we went over energy conservation techniques. The patient was given visual directives of this. The patient also worked on pursed lipped breathing and 4 second exertion with the hardest part of the activity and 2 second inhalation with the easiest part of activity. We worked on shoulder flexion, biceps curls, and wrist extension using pursed lipped breathing techniques to get the idea of how to complete exercises using good breathing patterns. We discussed why energy conservation was needed and the patient definitely agreed that this was needed at this point in time. A: The patient was very open to the energy conservation techniques. P: Continue seeing patient BID during the week and one time per day over the weekend for upper extremity strengthening, ADLs, and overall functional mobility. MTDD
--- NOTE | 2017-09-16 10:57 | OT PM DAY ---
Diagnosis : Weakness PM - Occupational Therapy S: The patient reports she is doing pretty well. O: The patient performed therapeutic exercises including horizontal abduction, biceps, triceps, adduction, internal/external rotation, power web, and digi-flex. A: The patient is making gains. P: Continue seeing patient BID during the week and one time per day over the weekend for upper extremity strengthening, ADLs, and overall functional mobility. SYLWIA
--- NOTE | 2017-09-16 11:16 | DCSUMMARY ---
Hospitalization Summary Hospital Course: Past Medical History Medical History: 1. Coronary artery disease with previous silent [place] according to her, had multiple stents. 2. GERD. 3. History of breast cancer status post right mastectomy. 4. History of uterine cancer. 5. Peripheral vascular disease. 6. Osteoporosis. 7. Depression Surgical History: 1. History of hysterectomy. 2. History of mastectomy Family History: Reviewed an Not Pertinent Past Social History: She smokes about 10-18 cigarettes a day, drinks nearly every day. No drugs. Lives in [place]. Tobacco Use: Current Every Day Smoker In the Past 12 Months, Have Used or Abuse Any of the Following Substance: None Alcohol Use: Other (She drinks nearly ever Final Discharge Diagnosis: Diagnostic Data, Laboratory Data, and Procedures of Signifigance: Current Visit Problems Problem Status Onset Code Acute exacerbation of CHF (congestive heart failure) Acute I50.9 Shortness of breath Acute R06.02 History of coronary artery disease Acute Z86.79 Pneumonia Acute J18.9 Chronic renal failure Acute N18.9 DVT prophylaxis Acute CHF (congestive heart failure) Acute I50.9 Weakness Acute R53.1 Course of Hospitalization: This very nice 82-year-old female with past medical history significant for coronary artery disease with multiple stents and previous [place] hypertension, history of breast and urine cancer presented to the hospital with cough she does have peripheral vascular disease saw the vascular surgeon the day before admission who sent her to the relocation services specialist for clearance for possible surgery she had hypoxia and was admitted to the [facility] here and Tim CT scan revealed right upper lobe pneumonia also she had some CHF on x-ray and was diuresed. Her creatinine had some acute renal failure which improved throughout her hospital stay she will be discharged home in stable and improved condition lungs are clear to auscultation she finished 6 days of IV ceftriaxone today she has an appointment with her relocation services specialist in [place] for stress and echo on Friday which I called and they want her to keep that appointment. I gave her prescriptions for inhalers Spiriva and Advair as well as Lasix 20 mg by mouth twice a day A she is very happy and content discussed with nursing and family members which I also called on agreement On the date of discharge, the patient was examined: Gen.: No acute distress, alert, nontoxic Heart: Regular rate and rhythm, no murmurs, clicks, gallops, or rubs Lungs: Clear to auscultation bilaterally, breathing is nonlabored Abdomen/GI: Normal tones on auscultation, soft, nontender, nondistended Musculoskeletal/extremities: No clubbing, cyanosis, or edema Vitals reviewed and are listed below Vital Signs (24 hrs) Temp Pulse Pulse Resp BP Pulse Ox 09/16/17 09:00 98.2 F 67 20 125/54 92 09/16/17 07:00 78 09/16/17 06:53 94 09/16/17 05:00 98 F 86 20 121/58 91 09/16/17 00:53 98.6 F 81 18 114/54 92 09/15/17 20:22 97.8 F 75 20 122/54 92 09/15/17 19:00 80 81 09/15/17 16:49 97.1 F 71 16 112/60 89 09/15/17 13:00 97.8 F 71 18 115/56 90 Assessment and Plan: 1. As per discharge assessments above 2. Disposition: Home 3. Condition on discharge, stable and improved. 4. Diet: regular diet 5. Activities: resume normal activities 6. Follow-Up: 1. PCP 2. An cardiology in [place] 7. Medications at the Time of Discharge: Home Medications 3 Medication Instructions Recorded Confirmed Type Aspirin [Aspir 81] 1 tab ORAL QD #0 tab 07/30/12 09/11/17 History Calcium Carbonate/Vitamin D3 1 ea PO BID 07/30/12 09/11/17 History [Calcium 500 + Vit D 200 Caplet] Denosumab [Prolia] 1 ml SUBCUT every 6 months #0 ml 07/25/15 09/11/17 History bupropion HCl XL 300 mg 24 hr 300 mg PO QDAY #90 tab 08/21/17 09/11/17 Rx tablet, extended release linaclotide 145 mcg capsule 145 mcg PO QDAY #90 cap 08/21/17 09/11/17 Rx metoprolol tartrate 25 mg tablet 25 mg PO BID #180 tab 08/21/17 09/11/17 Rx oxybutynin chloride ER 5 mg 5 mg PO QDAY #90 tab 08/21/17 09/11/17 Rx tablet,extended release 24 hr pantoprazole 40 mg tablet,delayed 40 mg PO QDAY #90 tab 01/25/18 02/15/18 Rx release rosuvastatin 40 mg tablet 40 mg PO QHS #90 tab 08/21/17 09/11/17 Rx spironolactone 25 mg tablet 25 mg PO QDAY #90 tab 08/21/17 09/11/17 Rx Flutica/Salmet 250/50 Inhaler 1 puff INH RTBID #1 inhaler 09/15/17 Rx [Advair Diskus 250/50 Inhaler] Furosemide [Lasix] 20 mg PO BID@0700,1300 #60 tab 09/15/17 Rx Tiotropium Inhalation Cap 18 mcg INH RTDAILY #1 inhaler 09/15/17 Rx [Spiriva Inhalation Cap] 8. Time, care, counseling and coordination of care for this discharge is greater than 30 minutes. Exam - Vitals Vital Signs: Vital Signs Temperature 98.2 F Temperature Source Temporal Artery Scan Pulse Rate [Apical] 78 Pulse Rate [Pulse Oximeter] 67 Pulse Rate 73 Respiratory Rate 20 Blood Pressure [Left Arm] 125/54 Blood Pressure 95/36 Pulse Ox 92 Oxygen Flow Rate 3 Oxygen Delivery Method Nasal Cannula Height 5 ft 3 in Weight 139 lb 12.8 oz Patient Problems - Patient Problem List (1) Pneumonia Current Visit: Yes Status: Acute Code(s): J18.9 - Pneumonia, unspecified organism Category: Medical (2) CHF (congestive heart failure) Current Visit: Yes Status: Acute Code(s): I50.9 - Heart failure, unspecified Category: Medical (3) History of coronary artery disease Current Visit: Yes Status: Acute Code(s): Z86.79 - Personal history of other diseases of the circulatory system Category: Medical (4) Chronic renal failure Current Visit: Yes Status: Acute Code(s): N18.9 - Chronic kidney disease, unspecified Category: Medical (5) DVT prophylaxis Current Visit: Yes Status: Acute Category: Medical (6) Gastroesophageal reflux disease Current Visit: No Status: Chronic Category: Medical (7) Weakness Current Visit: Yes Status: Acute Code(s): R53.1 - Weakness Category: Medical
--- NOTE | 2017-09-16 11:52 | PT.PROG ---
Progress Note Progress Note: S. Patient stated that she is feeling good today. O. Patient ambulated 175 feet to the therapy gym where she performed seated exercises in the form of; long arc quads, marches, heel toe raises, clam shells , resisted knee flexion all x 10 bilaterally with 2# weights and red thera band , sit to stands x 8, box step ups with #3 box x 10, balance grid x 3, walk the line forward and sideway x2. Patient ambulated 175 feet back to her room where she was left with alarm and call light. A. Patient tolerated therapy well she continues to make gains with strengthening and mobility. She has met all goals at this time P. continue POC until Discharge.
[2017-09-16 12:55] VITALS: BP 110/59; TEMP 97.8
== END 2017-09-16 13:48 | disposition home or self-care (01) | DRG 291 ==
LOC: ER 14:41 → MED/SURG 17:02
PROVIDERS: ADMIT Internal Medicine; ATTEND Internal Medicine